=== PATIENT | female | born 1950 | race Caucasian/White ===

== ENCOUNTER → 2021-02-28 10:45 | Outpatient (CLI) | payer OTHER, SELFPAY ==
--- NOTE | ~2021-02-28 | DEXA_ITS ---
Bone Density Report Name: Jennifer Borden Age: 70 Sex: Female Ethnicity: White Date of : 1950 Indication: postmenopausal; screening for osteoporosis; hysterectomy; Referring Provider: Miranda De La Paz Study: Bone densitometry was performed. Exam Date: February 28, 2021 Accession number: [id number] Bone Density: Region BMD T-score Z-score Classification AP Spine (L1-L4) 1.027 -0.2 2.1 Normal Femoral Neck (Left) 0.754 -0.9 1.1 Normal Total Hip (Left) 0.890 -0.4 1.2 Normal Femoral Neck (Right) 0.786 -0.6 1.4 Normal Total Hip (Right) 0.886 -0.5 1.2 Normal Total Hip Mean 0.888 -0.5 1.2 Normal World Health Organization criteria for BMD impression classify patients as: Normal (T-score at or above -1.0), Osteopenia (T-score between -1.0 and -2.5), or Osteoporosis (T-score at or below -2.5). 10-year Fracture Risk: FRAX not reported because: All T-scores for Spine Total, Hip Total, Femoral Neck at or above -1.0 Previous Exams: Region Exam Age BMD T-score BMD Change BMD Change Date g/cm2 vs Baseline vs Previous AP Spine(L1-L4) 02/28/2021 70 1.027 -0.2 0.076* 0.076* 11/02/2017 66 0.951 -0.9 Total Hip(Left) 02/28/2021 70 0.890 -0.4 -0.023 -0.023 11/02/2017 66 0.913 -0.2 Total Hip(Right) 02/28/2021 70 0.886 -0.5 -0.002 -0.002 11/02/2017 66 0.889 -0.4 *Denotes significance at 95% confidence level, LSC for AP Spine = 0.022 g/cm2, LSC for Total Hip = 0.027 g/cm2 Clinical Information Provided by Patient: Has the following medical conditions: Hysterectomy Patient maximum height was 64 Menopause Age: 43 Drinks caffeinated beverages Onset of menses at age 11 Number of children 2 Impression: The patient has normal bone mass. No significant bone loss was observed. Discussion: BONE DENSITY IS ABOVE THE MINIMUM DESIRABLE LEVEL AT ALL SKELETAL SITES TESTED. This patient?s bone mineral density is above the minimum desirable level (T-score -1.0 or better) at all sites measured. The patient should follow a healthful lifestyle (good nutrition with adequate calcium and vitamin D, and appropriate weight-bearing exercise). Follow-Up: Consider repeating this study in 5 years or sooner if there is some new clinical indication. Reported by: [facility] on 02/28/2021 11:22:00 AM. Reviewed, dictated and finalized at location Keren FISH
--- NOTE | ~2021-02-28 | MM_ITS ---
EXAMINATION: MM screening nicole BI w bo HISTORY: Screening mammogram TECHNIQUE: Craniocaudal and mediolateral oblique 3-D tomosynthesis images were obtained and synthetic 2-D images were generated. CAD analysis was submitted and interpreted. COMPARISON: 11/02/2017 BREAST PARENCHYMAL COMPOSITION: The breasts are heterogeneously dense, which may obscure small masses . FINDINGS: There is no evidence of suspicious mass, calcification, or architectural distortion to sugg est malignancy in either breast. There has been no suspicious interval change. IMPRESSION: 1. No mammographic evidence of malignancy. 2. Recommend routine screening mammography in one year. BI-RADS Category 1: Negative Reviewed, dictated and finalized at location A.
== END ==
PROVIDERS: PCP Nurse Practitioner; Visit Provider Nurse Practitioner
DX: Z12.31 Encounter for screening mammogram for malignant neoplasm of breast (principal); Z78.0 Asymptomatic menopausal state
CPT/HCPCS: 77063; 77067; 77080

== ENCOUNTER 2022-06-07 08:30 | Outpatient (CLI) | payer OTHER, SELFPAY ==
[2022-06-07 18:58] LABS: Hemoglobin A1C 6.7 % (<5.7)
[2022-06-07 19:04] LABS: Alanine Aminotransferase 14 U/L (6-35); Albumin Level 4.2 g/dL (3.5-5.1); Alkaline Phosphatase 37 U/L (38-126); Anion Gap 5 mmol/L (8-16); Aspartate Amino Transferase 59 U/L (14-36); Bilirubin,Total 0.9 mg/dL (0.2-1.3); Blood Urea Nitrogen 19 mg/dL (7-17); Calcium 8.5 mg/dL (8.4-10.2); Carbon Dioxide 29 mmol/L (22-30); Chloride 107 mmol/L (98-107); Cholesterol 156 mg/dL (0-200); Estimated Glomerular Filt Rate > 60; Glucose 102 mg/dL (65-110); HDL Direct 51 mg/dL; Sodium 141 mmol/L (137-145); Triglycerides 41 mg/dL (<150)
[2022-06-07 19:16] LABS: LDL Cholesterol Direct 74 mg/dL
== END 2022-06-07 08:31 | disposition home or self-care (01) ==
PROVIDERS: PCP Family Medicine; Visit Provider Nurse Practitioner
DX: E11.9 Type 2 diabetes mellitus without complications (principal); E55.9 Vitamin D deficiency, unspecified; E78.5 Hyperlipidemia, unspecified; I10 Essential (primary) hypertension
CPT/HCPCS: 36415; 80053; 80061; 82306; 83036

== ENCOUNTER 2022-06-09 11:18 | Outpatient (NON) | payer OTHER, SELFPAY ==
[2022-06-09 19:33] LABS: Creatinine Urine 95.8 mg/dL
[2022-06-09 19:37] LABS: MALB Creatinine Ratio 52.6 mg/g (0-30); Microalbumin Urine Random 50.4 mg/L (0-16.7)
== END 2022-06-09 11:19 | disposition home or self-care (01) ==
LOC: ANHGOSHLAB 11:21
PROVIDERS: PCP Family Medicine; Visit Provider Nurse Practitioner
DX: E11.9 Type 2 diabetes mellitus without complications (principal)
CPT/HCPCS: 82043

== ENCOUNTER → 2022-09-20 15:47 | Outpatient (CLI) | payer OTHER, SELFPAY ==
--- NOTE | ~2022-09-20 | MM_ITS ---
EXAMINATION: MM screening nicole BI w bo HISTORY: Screening mammogram TECHNIQUE: Craniocaudal and mediolateral oblique 3-D tomosynthesis images were obtained and synthetic 2-D images were generated. CAD analysis was submitted and interpreted. COMPARISON: 02/28/2021, 11/02/2017 bilateral screening mammogram examinations BREAST PARENCHYMAL COMPOSITION: The breasts are heterogeneously dense, which may obscure small masses . FINDINGS: There is no evidence of suspicious mass, calcification, or architectural distortion to sugg est malignancy in either breast. There has been no suspicious interval change. IMPRESSION: 1. No mammographic evidence of malignancy. 2. Recommend routine screening mammography in one year. BI-RADS Category 1: Negative Reviewed, dictated and finalized at location A.
== END ==
PROVIDERS: PCP Family Medicine; Visit Provider Nurse Practitioner
DX: Z12.31 Encounter for screening mammogram for malignant neoplasm of breast (principal)
CPT/HCPCS: 77063; 77067

== ENCOUNTER 2024-03-25 08:49 | Outpatient (CLI) | payer OTHER, SELFPAY | END 2024-03-25 08:50 | disposition home or self-care (01) | LOC: ANHAUDIO 08:52 | PROVIDERS: PCP Family Medicine; Visit Provider Nurse Practitioner Family | DX: H91.90 Unspecified hearing loss, unspecified ear (principal) | CPT/HCPCS: 92557; 92567 ==

== ENCOUNTER 2024-08-18 13:26 | Outpatient (CLI) | payer OTHER, SELFPAY ==
--- NOTE | ~2024-08-18 | MM_ITS ---
EXAMINATION: MM screening nicole BI w bo HISTORY: Screening TECHNIQUE: Craniocaudal and mediolateral oblique 3-D tomosynthesis images were obtained and synthetic 2-D images were generated. CAD analysis was submitted and interpreted. COMPARISON: Comparison to multiple prior studies sequentially, with oldest reviewed study dated 11/02. BREAST PARENCHYMAL COMPOSITION: Dense: The breasts are heterogeneously dense, which may obscure small masses FINDINGS: There is no evidence of suspicious mass, calcification, or architectural distortion to sugg est malignancy in either breast. There has been no suspicious interval change. IMPRESSION: 1. No mammographic evidence of malignancy. 2. Recommend routine screening mammography in one year. BI-RADS Category 1: Negative Reviewed, dictated and finalized at location B. 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
== END 2024-08-18 13:27 | disposition home or self-care (01) ==
LOC: MICIMG 13:27
PROVIDERS: PCP Family Medicine; Visit Provider Nurse Practitioner Family
DX: Z12.31 Encounter for screening mammogram for malignant neoplasm of breast (principal)
CPT/HCPCS: 77063; 77067

== ENCOUNTER 2024-09-09 10:05 | Outpatient (CLI) | payer OTHER, SELFPAY ==
[2024-09-09 13:27] LABS: Basophils Percent Auto 0.6 % (0.2-1.2); Eosinophils Absolute Auto 0.2 K/mm3 (0-0.3); Eosinophils Percent Auto 2.2 % (0-4.4); Hematocrit 38.7 % (37.0-47.0); Immature Granulocyte Absolute 0.01 K/mm3 (0.00-0.031); Immature Granulocyte Percent A 0.1 % (0-0.5); Lymphocytes Percent Auto 32.2 % (18.3-44.2); Mean Corpuscular Hemoglobin 28.1 pg (26-34); Mean Corpuscular Volume 90.6 fl (80-100); Mean Platelet Volume 11.7 fl (7.4-10.4); Monocytes Absolute Auto 0.6 K/mm3 (0.1-0.6); Monocytes Percent Auto 8.5 % (2.6-8.5); Neutrophils Percent Auto 56.4 % (45.5-73.1); Platelet Count Result 213 k/mm3 (150-375); Red Blood Count 4.27 M/mm3 (4.2-5.4); Red Cell Distribution Width 12.1 % (11.5-14.5); White Blood Count 7.1 K/mm3 (4.5-10.0)
[2024-09-09 14:15] LABS: Alanine Aminotransferase 12 U/L (6-35); Albumin Level 4.4 g/dL (3.5-5.1); Alkaline Phosphatase 37 U/L (38-126); Anion Gap 8 mmol/L (4-12); Aspartate Amino Transferase 41 U/L (14-36); Bilirubin,Total 0.8 mg/dL (0.2-1.3); Blood Urea Nitrogen 29 mg/dL (7-17); Calcium 9.3 mg/dL (8.4-10.2); Carbon Dioxide 29 mmol/L (22-30); Chloride 105 mmol/L (98-107); Cholesterol 192 mg/dL (0-200); Estimated Glomerular Filt Rate > 60; Glucose 99 mg/dL (65-110); HDL Direct 77 mg/dL; Potassium 4.4 mmol/L (3.4-5.0); Sodium 142 mmol/L (137-145); Triglycerides 53 mg/dL (<150)
[2024-09-09 14:23] LABS: Vitamin D 25 Hydroxy 77.8 ng/mL
[2024-09-09 14:27] LABS: LDL Cholesterol Direct 82 mg/dL
[2024-09-09 15:33] LABS: Hemoglobin A1C 5.8 % (<5.7)
== END 2024-09-09 10:06 | disposition home or self-care (01) ==
LOC: ANHGOSHLAB 10:06
PROVIDERS: PCP Family Medicine; Visit Provider Nurse Practitioner Family
DX: E55.9 Vitamin D deficiency, unspecified (principal); I10 Essential (primary) hypertension; E11.9 Type 2 diabetes mellitus without complications; E78.5 Hyperlipidemia, unspecified
CPT/HCPCS: 36415; 80053; 80061; 82306; 83036; 84443; 85025

== ENCOUNTER 2024-09-12 11:56 | Outpatient (NON) | payer OTHER, SELFPAY ==
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
--- OUTSIDE RECORDS SUMMARY | 2024-09-12 12:40 | XMS_ITS | Patient Health Summary ---
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 same degree of neural foraminal stenosis at these levels. Multiple hypodense thyroid nodules, the largest in the right thyroid lobe measures approximately 1.4 x 1.5 cm, (series 5, image 164). A nonemergent ultrasound of the thyroid gland is recommended for further evaluation. Right apical scarring and minimal background emphysema. Thoracic spine: Mild S-shaped curvature of the thoracic spine. Minimal exaggeration of the thoracic kyphosis. The alignment is otherwise maintained Vertebral bodies are normal in height without evidence of acute fracture. There is mild degenerative disc disease. No central canal stenosis is seen. There is mild facet osteoarthritis at multiple levels. No significant neural foraminal stenosis is seen. There is subsegmental atelectasis in the dependent portions of the lung bases. Lumbar spine: The alignment is normal. No acute fractures. There is diffuse disc bulge at multiple levels. Mild central canal stenosis is seen at L4-L5. There is mild facet osteoarthritis at multiple levels, worse at L5-S1 on the right. No neural foraminal stenosis is seen. There are degenerative changes of the SI joints. There is atherosclerotic calcification of the abdominal aorta and its branch vessels. Procedure Note Susan Romero MD - 06/13/2021 CT HEAD WO CONTRAST, CT FACIAL BONES WO CONTRAST, CT LUMBAR SPINE WO CONTRAST, CT THORACIC SPINE WO CONTRAST, CT CERVICAL SPINE WO CONTRAST DATE: 06/12/2021 12:32 PM EXAMINATION: 1. Computed tomography (CT) of the head without contrast 2. CT of the maxillofacial bones, orbits, and paranasal sinuses without contrast 3. CT of the cervical spine without contrast 4. CT of the thoracic spine without contrast 5. CT of the lumbar spine without contrast HISTORY: Trauma TECHNIQUE: CT of the head, cervical spine, and maxillofacial bones, orbits, and paranasal sinuses was performed without contrast accordingto standard protocol. Reformatted axial, sagittal, and coronal images ofthe thoracic and lumbar spine were obtained by the technologist from a concurrently performed body CT and sent to the workstation for review. COMPARISON: No prior study is available for comparison at the time ofthis dictation. FINDINGS: Head: No acute intra- or extra-axial fluid collections are identified. The ventricles are of normal size, shape, and morphology. The basilarcisterns are patent. No mass effect or midline shift is seen. The fritz-whitematter differentiation is normal. There is vascular calcification of thecarotid siphons. No acute calvarial fracture is identified. Moderate frontal scalp hematoma/soft tissue swelling. Maxillofacial: Other than bilateral cataract extractions, the orbits appear normal.There is minimal paranasal sinus disease. The hard palate, mandible, and temporomandibular joints appear normal. Acute, minimally displaced left nasal bone fractures. The mastoid air cells are clear. Moderate frontal scalp hematoma/soft tissue swelling. Patient is edentulous except forone unerupted mandibular tooth on the right. Cervical spine: Subtle retrolisthesis of C5 on C6 with endplate degenerative changes and deformity posteriorly. Relative straightening of the upper cervical lordosis. The alignment is otherwise maintained. Vertebral bodies are normal in height without evidence of acute fracture. Other than middle atlantoaxial joint osteoarthritis, the craniocervical junction appears normal. Mild degenerative disc disease at C4-C5 with posteriorosteophyte complex. No significant central canal stenosis is seen. There arevarying degrees of mild facet osteoarthritis. There are varying degrees of mild uncovertebral joint osteoarthritis with the same degree of neural foraminal stenosis at these levels. Multiple hypodense thyroid nodules, the largest in the right thyroid lobe measures approximately 1.4 x 1.5cm, (series 5, image 164). A nonemergent ultrasound of the thyroid gland is recommended for further evaluation. Right apical scarring and minimal background emphysema. Thoracic spine: Mild S-shaped curvature of the thoracic spine. Minimal exaggeration ofthe thoracic kyphosis. The alignment is otherwise maintained Vertebralbodies are normal in height without evidence of acute fracture. There is mild degenerative disc disease. No central canal stenosis is seen. There is mild facet osteoarthritis at multiple levels. No significant neural foraminal stenosis is seen. There is subsegmental atelectasis in the dependent portions of the lung bases. Lumbar spine: The alignment is normal. No acute fractures. There is diffuse disc bulge at multiple levels. Mild central canal stenosis is seen at L4-L5. Thereis mild facet osteoarthritis at multiple levels, worse at L5-S1 on theright. No neural foraminal stenosis is seen. There are degenerative changes of the SI joints. There is atherosclerotic calcification of the abdominal aorta and its branch vessels. IMPRESSION: 1.No evidence of intracranial hemorrhage, mass effect, midline shift. 2.Acute, minimally displaced left nasal bone fractures. Moderate frontal scalp hematoma/soft tissue swelling. 3.No acute fractures in the cervical, thoracic, lumbar spine. Dictated by Jai Potter DO (president and ceo) This report was approved by Jai Potter on 06/13/2021 8:[address] SUSAN Smith have personally reviewed and interpreted this examination/study. This report was electronically signed by SUSAN ROMERO on06/13/2021 8:01 AM . Peterson West MD CT ORDERABLES * CT CERVICAL SPINE WO CONTRAST - C-Spine Trauma, Spine fracture (06/12/2021 12:10 PM SYRUP FILTERER) Anatomical Region Laterality Modality Spine Computed Tomogra phy 06/12/2021 12:3 0 PM SYR[employer] FILTER[employer] Impressions 06/13/2021 8:01 AM SYRUP FILTERER IMPRESSION: 1.No evidence of intracranial hemorrhage, mass effect, midline shift. 2.Acute, minimally displaced left nasal bone fractures. Moderate frontal scalp hematoma/soft tissue swelling. 3.No acute fractures in the cervical, thoracic, lumbar spine. Dictated by Jai Potter DO (president and ceo) This report was approved by Jai Potter on 06/13/2021 8:[address] SUSAN Smith have personally reviewed and interpreted this examination/study. This report was electronically signed by SUSAN ROMERO on 06/13/2021 8:01 AM . Narrative 06/13/2021 8:[address] HEAD WO CONTRAST, CT FACIAL BONES WO CONTRAST, CT LUMBAR SPINE WO CONTRAST, CT THORACIC SPINE WO CONTRAST, CT CERVICAL SPINE WO CONTRAST DATE: 06/12/2021 12:32 PM EXAMINATION: 1. Computed tomography (CT) of the head without contrast 2. CT of the maxillofacial bones, orbits, and paranasal sinuses without contrast 3. CT of the cervical spine without contrast 4. CT of the thoracic spine without contrast 5. CT of the lumbar spine without contrast HISTORY: Trauma TECHNIQUE: CT of the head, cervical spine, and maxillofacial bones, orbits, and paranasal sinuses was performed without contrast according to standard protocol. Reformatted axial, sagittal, and coronal images of the thoracic and lumbar spine were obtained by the technologist from a concurrently performed body CT and sent to the workstation for review. COMPARISON: No prior study is available for comparison at the time of this dictation. FINDINGS: Head: No acute intra- or extra-axial fluid collections are identified. The ventricles are of normal size, shape, and morphology. The basilar cisterns are patent. No mass effect or midline shift is seen. The fritz-white matter differentiation is normal. There is vascular calcification of the carotid siphons. No acute calvarial fracture is identified. Moderate frontal scalp hematoma/soft tissue swelling. Maxillofacial: Other than bilateral cataract extractions, the orbits appear normal. There is minimal paranasal sinus disease. The hard palate, mandible, and temporomandibular joints appear normal. Acute, minimally displaced left nasal bone fractures. The mastoid air cells are clear. Moderate frontal scalp hematoma/soft tissue swelling. Patient is edentulous except for one unerupted mandibular tooth on the right. Cervical spine: Subtle retrolisthesis of C5 on C6 with endplate degenerative changes and deformity posteriorly. Relative straightening of the upper cervical lordosis. The alignment is otherwise maintained. Vertebral bodies are normal in height without evidence of acute fracture. Other than middle atlantoaxial joint osteoarthritis, the craniocervical junction appears normal. Mild degenerative disc disease at C4-C5 with posterior osteophyte complex. No significant central canal stenosis is seen. There are varying degrees of mild facet osteoarthritis. There are varying degrees of mild uncovertebral joint osteoarthritis with the same degree of neural foraminal stenosis at these levels. Multiple hypodense thyroid nodules, the largest in the right thyroid lobe measures approximately 1.4 x 1.5 cm, (series 5, image 164). A nonemergent ultrasound of the thyroid gland is recommended for further evaluation. Right apical scarring and minimal background emphysema. Thoracic spine: Mild S-shaped curvature of the thoracic spine. Minimal exaggeration of the thoracic kyphosis. The alignment is otherwise maintained Vertebral bodies are normal in height without evidence of acute fracture. There is mild degenerative disc disease. No central canal stenosis is seen. There is mild facet osteoarthritis at multiple levels. No significant neural foraminal stenosis is seen. There is subsegmental atelectasis in the dependent portions of the lung bases. Lumbar spine: The alignment is normal. No acute fractures. There is diffuse disc bulge at multiple levels. Mild central canal stenosis is seen at L4-L5. There is mild facet osteoarthritis at multiple levels, worse at L5-S1 on the right. No neural foraminal stenosis is seen. There are degenerative changes of the SI joints. There is atherosclerotic calcification of the abdominal aorta and its branch vessels. Procedure Note Susan Romero MD - 06/13/2021 CT HEAD WO CONTRAST, CT FACIAL BONES WO CONTRAST, CT LUMBAR SPINE WO CONTRAST, CT THORACIC SPINE WO CONTRAST, CT CERVICAL SPINE WO CONTRAST DATE: 06/12/2021 12:32 PM EXAMINATION: 1. Computed tomography (CT) of the head without contrast 2. CT of the maxillofacial bones, orbits, and paranasal sinuses without contrast 3. CT of the cervical spine without contrast 4. CT of the thoracic spine without contrast 5. CT of the lumbar spine without contrast HISTORY: Trauma TECHNIQUE: CT of the head, cervical spine, and maxillofacial bones, orbits, and paranasal sinuses was performed without contrast accordingto standard protocol. Reformatted axial, sagittal, and coronal images ofthe thoracic and lumbar spine were obtained by the technologist from a concurrently performed body CT and sent to the workstation for review. COMPARISON: No prior study is available for comparison at the time ofthis dictation. FINDINGS: Head: No acute intra- or extra-axial fluid collections are identified. The ventricles are of normal size, shape, and morphology. The basilarcisterns are patent. No mass effect or midline shift is seen. The fritz-whitematter differentiation is normal. There is vascular calcification of thecarotid siphons. No acute calvarial fracture is identified. Moderate frontal scalp hematoma/soft tissue swelling. Maxillofacial: Other than bilateral cataract extractions, the orbits appear normal.There is minimal paranasal sinus disease. The hard palate, mandible, and temporomandibular joints appear normal. Acute, minimally displaced left nasal bone fractures. The mastoid air cells are clear. Moderate frontal scalp hematoma/soft tissue swelling. Patient is edentulous except forone unerupted mandibular tooth on the right. Cervical spine: Subtle retrolisthesis of C5 on C6 with endplate degenerative changes and deformity posteriorly. Relative straightening of the upper cervical lordosis. The alignment is otherwise maintained. Vertebral bodies are normal in height without evidence of acute fracture. Other than middle atlantoaxial joint osteoarthritis, the craniocervical junction appears normal. Mild degenerative disc disease at C4-C5 with posteriorosteophyte complex. No significant central canal stenosis is seen. There arevarying degrees of mild facet osteoarthritis. There are varying degrees of mild uncovertebral joint osteoarthritis with the same degree of neural foraminal stenosis at these levels. Multiple hypodense thyroid nodules, the largest in the right thyroid lobe measures approximately 1.4 x 1.5cm, (series 5, image 164). A nonemergent ultrasound of the thyroid gland is recommended for further evaluation. Right apical scarring and minimal background emphysema. Thoracic spine: Mild S-shaped curvature of the thoracic spine. Minimal exaggeration ofthe thoracic kyphosis. The alignment is otherwise maintained Vertebralbodies are normal in height without evidence of acute fracture. There is mild degenerative disc disease. No central canal stenosis is seen. There is mild facet osteoarthritis at multiple levels. No significant neural foraminal stenosis is seen. There is subsegmental atelectasis in the dependent portions of the lung bases. Lumbar spine: The alignment is normal. No acute fractures. There is diffuse disc bulge at multiple levels. Mild central canal stenosis is seen at L4-L5. Thereis mild facet osteoarthritis at multiple levels, worse at L5-S1 on theright. No neural foraminal stenosis is seen. There are degenerative changes of the SI joints. There is atherosclerotic calcification of the abdominal aorta and its branch vessels. IMPRESSION: 1.No evidence of intracranial hemorrhage, mass effect, midline shift. 2.Acute, minimally displaced left nasal bone fractures. Moderate frontal scalp hematoma/soft tissue swelling. 3.No acute fractures in the cervical, thoracic, lumbar spine. Dictated by Jai Potter DO (president and ceo) This report was approved by Jai Potter on 06/13/2021 8:01 AM . I, Dr. SUSAN ROMERO have personally reviewed and interpreted this examination/study. This report was electronically signed by SUSAN ROMERO on06/13/2021 8:01 AM . Peterson West MD CT ORDERABLES * CT FACIAL BONES WO CONTRAST - Facial trauma, fx suspected, blunt (06/12/2021 12:10 PM SYRUP FILTERER) Anatomical Region Laterality Modality Head Computed Tomogra phy 06/12/2021 12:3 0 PM SYRUP FILTERER Impressions 06/13/2021 8:01 AM SYRUP FILTERER IMPRESSION: 1.No evidence of intracranial hemorrhage, mass effect, midline shift. 2.Acute, minimally displaced left nasal bone fractures. Moderate frontal scalp hematoma/soft tissue swelling. 3.No acute fractures in the cervical, thoracic, lumbar spine. Dictated by Jai Potter DO (president and ceo) This report was approved by Jai Potter on 06/13/2021 8:01 AM . I, Dr. SUSAN ROMERO have personally reviewed and interpreted this examination/study. This report was electronically signed by SUSAN ROMERO on 06/13/2021 8:01 AM . Narrative 06/13/2021 8:[address] HEAD WO CONTRAST, CT FACIAL BONES WO CONTRAST, CT LUMBAR SPINE WO CONTRAST, CT THORACIC SPINE WO CONTRAST, CT CERVICAL SPINE WO CONTRAST DATE: 06/12/2021 12:32 PM EXAMINATION: 1. Computed tomography (CT) of the head without contrast 2. CT of the maxillofacial bones, orbits, and paranasal sinuses without contrast 3. CT of the cervical spine without contrast 4. CT of the thoracic spine without contrast 5. CT of the lumbar spine without contrast HISTORY: Trauma TECHNIQUE: CT of the head, cervical spine, and maxillofacial bones, orbits, and paranasal sinuses was performed without contrast according to standard protocol. Reformatted axial, sagittal, and coronal images of the thoracic and lumbar spine were obtained by the technologist from a concurrently performed body CT and sent to the workstation for review. COMPARISON: No prior study is available for comparison at the time of this dictation. FINDINGS: Head: No acute intra- or extra-axial fluid collections are identified. The ventricles are of normal size, shape, and morphology. The basilar cisterns are patent. No mass effect or midline shift is seen. The fritz-white matter differentiation is normal. There is vascular calcification of the carotid siphons. No acute calvarial fracture is identified. Moderate frontal scalp hematoma/soft tissue swelling. Maxillofacial: Other than bilateral cataract extractions, the orbits appear normal. There is minimal paranasal sinus disease. The hard palate, mandible, and temporomandibular joints appear normal. Acute, minimally displaced left nasal bone fractures. The mastoid air cells are clear. Moderate frontal scalp hematoma/soft tissue swelling. Patient is edentulous except for one unerupted mandibular tooth on the right. Cervical spine: Subtle retrolisthesis of C5 on C6 with endplate degenerative changes and deformity posteriorly. Relative straightening of the upper cervical lordosis. The alignment is otherwise maintained. Vertebral bodies are normal in height without evidence of acute fracture. Other than middle atlantoaxial joint osteoarthritis, the craniocervical junction appears normal. Mild degenerative disc disease at C4-C5 with posterior osteophyte complex. No significant central canal stenosis is seen. There are varying degrees of mild facet osteoarthritis. There are varying degrees of mild uncovertebral joint osteoarthritis with the same degree of neural foraminal stenosis at these levels. Multiple hypodense thyroid nodules, the largest in the right thyroid lobe measures approximately 1.4 x 1.5 cm, (series 5, image 164). A nonemergent ultrasound of the thyroid gland is recommended for further evaluation. Right apical scarring and minimal background emphysema. Thoracic spine: Mild S-shaped curvature of the thoracic spine. Minimal exaggeration of the thoracic kyphosis. The alignment is otherwise maintained Vertebral bodies are normal in height without evidence of acute fracture. There is mild degenerative disc disease. No central canal stenosis is seen. There is mild facet osteoarthritis at multiple levels. No significant neural foraminal stenosis is seen. There is subsegmental atelectasis in the dependent portions of the lung bases. Lumbar spine: The alignment is normal. No acute fractures. There is diffuse disc bulge at multiple levels. Mild central canal stenosis is seen at L4-L5. There is mild facet osteoarthritis at multiple levels, worse at L5-S1 on the right. No neural foraminal stenosis is seen. There are degenerative changes of the SI joints. There is atherosclerotic calcification of the abdominal aorta and its branch vessels. Procedure Note Susan Romero MD - 06/13/2021 CT HEAD WO CONTRAST, CT FACIAL BONES WO CONTRAST, CT LUMBAR SPINE WO CONTRAST, CT THORACIC SPINE WO CONTRAST, CT CERVICAL SPINE WO CONTRAST DATE: 06/12/2021 12:32 PM EXAMINATION: 1. Computed tomography (CT) of the head without contrast 2. CT of the maxillofacial bones, orbits, and paranasal sinuses without contrast 3. CT of the cervical spine without contrast 4. CT of the thoracic spine without contrast 5. CT of the lumbar spine without contrast HISTORY: Trauma TECHNIQUE: CT of the head, cervical spine, and maxillofacial bones, orbits, and paranasal sinuses was performed without contrast accordingto standard protocol. Reformatted axial, sagittal, and coronal images ofthe thoracic and lumbar spine were obtained by the technologist from a concurrently performed body CT and sent to the workstation for review. COMPARISON: No prior study is available for comparison at the time ofthis dictation. FINDINGS: Head: No acute intra- or extra-axial fluid collections are identified. The ventricles are of normal size, shape, and morphology. The basilarcisterns are patent. No mass effect or midline shift is seen. The fritz-whitematter differentiation is normal. There is vascular calcification of thecarotid siphons. No acute calvarial fracture is identified. Moderate frontal scalp hematoma/soft tissue swelling. Maxillofacial: Other than bilateral cataract extractions, the orbits appear normal.There is minimal paranasal sinus disease. The hard palate, mandible, and temporomandibular joints appear normal. Acute, minimally displaced left nasal bone fractures. The mastoid air cells are clear. Moderate frontal scalp hematoma/soft tissue swelling. Patient is edentulous except forone unerupted mandibular tooth on the right. Cervical spine: Subtle retrolisthesis of C5 on C6 with endplate degenerative changes and deformity posteriorly. Relative straightening of the upper cervical lordosis. The alignment is otherwise maintained. Vertebral bodies are normal in height without evidence of acute fracture. Other than middle atlantoaxial joint osteoarthritis, the craniocervical junction appears normal. Mild degenerative disc disease at C4-C5 with posteriorosteophyte complex. No significant central canal stenosis is seen. There arevarying degrees of mild facet osteoarthritis. There are varying degrees of mild uncovertebral joint osteoarthritis with the same degree of neural foraminal stenosis at these levels. Multiple hypodense thyroid nodules, the largest in the right thyroid lobe measures approximately 1.4 x 1.5cm, (series 5, image 164). A nonemergent ultrasound of the thyroid gland is recommended for further evaluation. Right apical scarring and minimal background emphysema. Thoracic spine: Mild S-shaped curvature of the thoracic spine. Minimal exaggeration ofthe thoracic kyphosis. The alignment is otherwise maintained Vertebralbodies are normal in height without evidence of acute fracture. There is mild degenerative disc disease. No central canal stenosis is seen. There is mild facet osteoarthritis at multiple levels. No significant neural foraminal stenosis is seen. There is subsegmental atelectasis in the dependent portions of the lung bases. Lumbar spine: The alignment is normal. No acute fractures. There is diffuse disc bulge at multiple levels. Mild central canal stenosis is seen at L4-L5. Thereis mild facet osteoarthritis at multiple levels, worse at L5-S1 on theright. No neural foraminal stenosis is seen. There are degenerative changes of the SI joints. There is atherosclerotic calcification of the abdominal aorta and its branch vessels. IMPRESSION: 1.No evidence of intracranial hemorrhage, mass effect, midline shift. 2.Acute, minimally displaced left nasal bone fractures. Moderate frontal scalp hematoma/soft tissue swelling. 3.No acute fractures in the cervical, thoracic, lumbar spine. Dictated by Jai Potter DO (president and ceo) This report was approved by Jai Potter on 06/13/2021 8:01 AM . I, Dr. SUSAN ROMERO have personally reviewed and interpreted this examination/study. This report was electronically signed by SUSAN ROMERO on06/13/2021 8:01 AM . Peterson West MD CT ORDERABLES * CT HEAD WO CONTRAST - Head Trauma, CSF leak, mental status changes (06/12/2021 12:10 PM SYRUP FILTERER) Anatomical Region Laterality Modality Head Computed Tomogra phy 06/12/2021 12:3 0 PM SYRUP FILTERER Impressions 06/13/2021 8:01 AM SYRUP FILTERER IMPRESSION: 1.No evidence of intracranial hemorrhage, mass effect, midline shift. 2.Acute, minimally displaced left nasal bone fractures. Moderate frontal scalp hematoma/soft tissue swelling. 3.No acute fractures in the cervical, thoracic, lumbar spine. Dictated by Jai Potter DO (president and ceo) This report was approved by Jai Potter on 06/13/2021 8:01 AM . I, Dr. SUSAN ROMERO have personally reviewed and interpreted this examination/study. This report was electronically signed by SUSAN ROMERO on 06/13/2021 8:01 AM . Narrative 06/13/2021 8:[address] HEAD WO CONTRAST, CT FACIAL BONES WO CONTRAST, CT LUMBAR SPINE WO CONTRAST, CT THORACIC SPINE WO CONTRAST, CT CERVICAL SPINE WO CONTRAST DATE: 06/12/2021 12:32 PM EXAMINATION: 1. Computed tomography (CT) of the head without contrast 2. CT of the maxillofacial bones, orbits, and paranasal sinuses without contrast 3. CT of the cervical spine without contrast 4. CT of the thoracic spine without contrast 5. CT of the lumbar spine without contrast HISTORY: Trauma TECHNIQUE: CT of the head, cervical spine, and maxillofacial bones, orbits, and paranasal sinuses was performed without contrast according to standard protocol. Reformatted axial, sagittal, and coronal images of the thoracic and lumbar spine were obtained by the technologist from a concurrently performed body CT and sent to the workstation for review. COMPARISON: No prior study is available for comparison at the time of this dictation. FINDINGS: Head: No acute intra- or extra-axial fluid collections are identified. The ventricles are of normal size, shape, and morphology. The basilar cisterns are patent. No mass effect or midline shift is seen. The fritz-white matter differentiation is normal. There is vascular calcification of the carotid siphons. No acute calvarial fracture is identified. Moderate frontal scalp hematoma/soft tissue swelling. Maxillofacial: Other than bilateral cataract extractions, the orbits appear normal. There is minimal paranasal sinus disease. The hard palate, mandible, and temporomandibular joints appear normal. Acute, minimally displaced left nasal bone fractures. The mastoid air cells are clear. Moderate frontal scalp hematoma/soft tissue swelling. Patient is edentulous except for one unerupted mandibular tooth on the right. Cervical spine: Subtle retrolisthesis of C5 on C6 with endplate degenerative changes and deformity posteriorly. Relative straightening of the upper cervical lordosis. The alignment is otherwise maintained. Vertebral bodies are normal in height without evidence of acute fracture. Other than middle atlantoaxial joint osteoarthritis, the craniocervical junction appears normal. Mild degenerative disc disease at C4-C5 with posterior osteophyte complex. No significant central canal stenosis is seen. There are varying degrees of mild facet osteoarthritis. There are varying degrees of mild uncovertebral joint osteoarthritis with the same degree of neural foraminal stenosis at these levels. Multiple hypodense thyroid nodules, the largest in the right thyroid lobe measures approximately 1.4 x 1.5 cm, (series 5, image 164). A nonemergent ultrasound of the thyroid gland is recommended for further evaluation. Right apical scarring and minimal background emphysema. Thoracic spine: Mild S-shaped curvature of the thoracic spine. Minimal exaggeration of the thoracic kyphosis. The alignment is otherwise maintained Vertebral bodies are normal in height without evidence of acute fracture. There is mild degenerative disc disease. No central canal stenosis is seen. There is mild facet osteoarthritis at multiple levels. No significant neural foraminal stenosis is seen. There is subsegmental atelectasis in the dependent portions of the lung bases. Lumbar spine: The alignment is normal. No acute fractures. There is diffuse disc bulge at multiple levels. Mild central canal stenosis is seen at L4-L5. There is mild facet osteoarthritis at multiple levels, worse at L5-S1 on the right. No neural foraminal stenosis is seen. There are degenerative changes of the SI joints. There is atherosclerotic calcification of the abdominal aorta and its branch vessels. Procedure Note Susan Romero MD - 06/13/2021 CT HEAD WO CONTRAST, CT FACIAL BONES WO CONTRAST, CT LUMBAR SPINE WO CONTRAST, CT THORACIC SPINE WO CONTRAST, CT CERVICAL SPINE WO CONTRAST DATE: 06/12/2021 12:32 PM EXAMINATION: 1. Computed tomography (CT) of the head without contrast 2. CT of the maxillofacial bones, orbits, and paranasal sinuses without contrast 3. CT of the cervical spine without contrast 4. CT of the thoracic spine without contrast 5. CT of the lumbar spine without contrast HISTORY: Trauma TECHNIQUE: CT of the head, cervical spine, and maxillofacial bones, orbits, and paranasal sinuses was performed without contrast accordingto standard protocol. Reformatted axial, sagittal, and coronal images ofthe thoracic and lumbar spine were obtained by the technologist from a concurrently performed body CT and sent to the workstation for review. COMPARISON: No prior study is available for comparison at the time ofthis dictation. FINDINGS: Head: No acute intra- or extra-axial fluid collections are identified. The ventricles are of normal size, shape, and morphology. The basilarcisterns are patent. No mass effect or midline shift is seen. The fritz-whitematter differentiation is normal. There is vascular calcification of thecarotid siphons. No acute calvarial fracture is identified. Moderate frontal scalp hematoma/soft tissue swelling. Maxillofacial: Other than bilateral cataract extractions, the orbits appear normal.There is minimal paranasal sinus disease. The hard palate, mandible, and temporomandibular joints appear normal. Acute, minimally displaced left nasal bone fractures. The mastoid air cells are clear. Moderate frontal scalp hematoma/soft tissue swelling. Patient is edentulous except forone unerupted mandibular tooth on the right. Cervical spine: Subtle retrolisthesis of C5 on C6 with endplate degenerative changes and deformity posteriorly. Relative straightening of the upper cervical lordosis. The alignment is otherwise maintained. Vertebral bodies are normal in height without evidence of acute fracture. Other than middle atlantoaxial joint osteoarthritis, the craniocervical junction appears normal. Mild degenerative disc disease at C4-C5 with posteriorosteophyte complex. No significant central canal stenosis is seen. There arevarying degrees of mild facet osteoarthritis. There are varying degrees of mild uncovertebral joint osteoarthritis with the same degree of neural foraminal stenosis at these levels. Multiple hypodense thyroid nodules, the largest in the right thyroid lobe measures approximately 1.4 x 1.5cm, (series 5, image 164). A nonemergent ultrasound of the thyroid gland is recommended for further evaluation. Right apical scarring and minimal background emphysema. Thoracic spine: Mild S-shaped curvature of the thoracic spine. Minimal exaggeration ofthe thoracic kyphosis. The alignment is otherwise maintained Vertebralbodies are normal in height without evidence of acute fracture. There is mild degenerative disc disease. No central canal stenosis is seen. There is mild facet osteoarthritis at multiple levels. No significant neural foraminal stenosis is seen. There is subsegmental atelectasis in the dependent portions of the lung bases. Lumbar spine: The alignment is normal. No acute fractures. There is diffuse disc bulge at multiple levels. Mild central canal stenosis is seen at L4-L5. Thereis mild facet osteoarthritis at multiple levels, worse at L5-S1 on theright. No neural foraminal stenosis is seen. There are degenerative changes of the SI joints. There is atherosclerotic calcification of the abdominal aorta and its branch vessels. IMPRESSION: 1.No evidence of intracranial hemorrhage, mass effect, midline shift. 2.Acute, minimally displaced left nasal bone fractures. Moderate frontal scalp hematoma/soft tissue swelling. 3.No acute fractures in the cervical, thoracic, lumbar spine. Dictated by Jai Potter DO (president and ceo) This report was approved by Jai Potter on 06/13/2021 8:[address] SUSAN Smith have personally reviewed and interpreted this examination/study. This report was electronically signed by SUSAN ROMERO on06/13/2021 8:01 AM . Peterson West MD CT ORDERABLES * XR PELVIS 1 OR 2VW (06/12/2021 11:55 AM [employer]YR[employer] FILTERER) Anatomical Region Laterality Modality Pelvis Radiographic Chacha ging 06/12/2021 1:04 PM [employer] FIL[employer] Impressions 06/12/2021 11:49 PM [employer] IMPRESSION: No acute fracture identified. Dictated by Jai Potter DO (chief radiology). This report was approved by Jai Potter on 06/12/2021 11:[address] SUSAN Smith have personally reviewed and interpreted this examination/study. This report was electronically signed by SUSAN ROMERO on 06/12/2021 11:49 PM . Narrative 06/12/2021 11:49 PM [employer] EXAMINATION: XR PELVIS 1 OR 2VW HISTORY: Trauma Fracture suspected COMPARISON: No prior study is available for comparison at the time of this dictation. FINDINGS: No acute fracture is identified. The femoral heads appear well-seated within their respective acetabula. There are degenerative changes of the hip joints. The pubic symphysis is intact. The sacroiliac joints are normal. Procedure Note Susan Romero MD - 06/12/2021 EXAMINATION: XR PELVIS 1 OR 2VW HISTORY: Trauma Fracture suspected COMPARISON: No prior study is available for comparison at the time ofthis dictation. FINDINGS: No acute fracture is identified. The femoral heads appear well-seated within their respective acetabula. There are degenerative changes of the hip joints. The pubic symphysis is intact. The sacroiliac joints are normal. IMPRESSION: No acute fracture identified. Dictated by Jai Potter DO (chief radiology). This report was approved by Jai Potter on 06/12/2021 11:[address] SUSAN Simth have personally reviewed and interpreted this examination/study. This report was electronically signed by SUSAN ROMERO on06/12/2021 11:49 PM . Peterson West MD DIAGNOSTIC IMAGING O RDERABLES * XR CHEST 1VW PORTABLE (06/12/2021 11:54 AM SYRUP FILTERER) Anatomical Region Laterality Modality Chest Radiographic Chacha ging 06/12/2021 1:05 PM S[employer] FILTERER Impressions 06/12/2021 11:50 PM [employer]UP FILTERER FINDINGS/IMPRESSION: There is no focal consolidation, pleural effusion, or pneumothorax. The cardiomediastinal silhouette is normal. There are atherosclerotic calcifications of the aortic arch. The visible bony thorax is intact. Dictated by Jai Potter DO (chief radiology). This report was approved by Jai Potter on 06/12/2021 11:50 PM . I, Dr. SUSAN ROMERO have personally reviewed and interpreted this examination/study. This report was electronically signed by SUSAN ROMERO on 06/12/2021 11:50 PM . Narrative 06/12/2021 11:50 PM [employer]YRUP FILTERER EXAMINATION: XR CHEST 1VW PORTABLE HISTORY: Trauma COMPARISON: No prior study is available for comparison at the time of this dictation. Procedure Note Susan Romero MD - 06/12/2021 EXAMINATION: XR CHEST 1VW PORTABLE HISTORY: Trauma COMPARISON: No prior study is available for comparison at the time ofthis dictation. FINDINGS/IMPRESSION: There is no focal consolidation, pleural effusion, or pneumothorax. The cardiomediastinal silhouette is normal. There are atherosclerotic calcifications of the aortic arch. The visible bony thorax is intact. Dictated by Jai Potter DO (chief radiology). This report was approved by Jai Potter on 06/12/2021 11:50 PM . I, Dr. SUSAN ROMERO have personally reviewed and interpreted this examination/study. This report was electronically signed by SUSAN ROMERO on06/12/2021 11:50 PM . Peterson West MD DIAGNOSTIC IMAGING O RDERABLES * PTT [facility] (06/12/2021 11:53 AM SYRUP FILTERER) APTT 29.9 23.0 - 38.4 Seconds 06/12/2021 12:40 PM [facility] Comment:Suggested therapeuti c range for full dose I.V. unfractionated heparin therapy for venous thromboembolism is 71 to 109 seconds. Blood BLOOD SPECIMEN / Unknown Venipuncture / Unknown 06/12/2021 11:53 AM SYRUP FILTERER 06/12/2021 11:59 AM SYRUP FILTERER Peterson West MD LAB - COAGULATION OR DERABLES Performing Organization Address City/[facility]/ZIP Co de Phone Number [address] [id number] [phone] * PT-INR [facility] (06/12/2021 11:53 AM SYRUP FILTERER) PT 12.8 12.1 - 14.8 Seconds 06/12/2021 12:51 PM [facility] INR 1.0 See Comment 06/12/2021 12:51 PM [facility] Comment:The suggested therap eutic range for standard coumadin (warfarin) therapy is an INR of 2.0-3.0. For high-risk patients (Mechanical Mitral Valve Prosthesis, etc.), the suggested prophylactic therapeutic range is an INR of 2.5-3.5. Blood BLOOD SPECIMEN / Unknown Venipuncture / Unknown 06/12/2021 11:53 AM SYRUP FILTERER 06/12/2021 11:59 AM SYRUP FILTERER Peterson West MD LAB - COAGULATION OR DERABLES [address] [place] [address] [phone] * CBC W AUTO DIFFERENTIAL (06/12/2021 11:53 AM SYRUP FILTERER) WBC 7.8 3.5 - 10.5 10 3/uL 06/12/2021 12:02 PM [facility] RBC 4.64 3.80 - 5.20 10 6/uL 06/12/2021 12:02 PM [facility] Hemoglobin 12.9 12.0 - 15.6 g/dL 06/12/2021 12:02 PM [facility] Hematocrit 39.8 35.0 - 45.0 % 06/12/2021 12:02 PM [facility] MCV 85.8 80.7 - 98.3 fL 06/12/2021 12:02 PM [facility] MCH 27.8 26.7 - 34.0 pg 06/12/2021 12:02 PM [facility] MCHC 32.4 30.8 - 35.9 g/dL 06/12/2021 12:02 PM [facility] Platelet Count 235 150 - 400 10 3/uL 06/12/2021 12:02 PM [facility] RDW-SD 36.7 36.0 - 50.0 fL 06/12/2021 12:02 PM [facility] RDW-CV 11.8 11.2 - 14.8 % 06/12/2021 12:02 PM [facility] MPV 11.1 9.4 - 12.9 fL 06/12/2021 12:02 PM [facility] nRBC Absolute 0.00 0 10 3/uL 06/12/2021 12:02 PM [facility] nRBC Auto 0.0 0 /100 WBC 06/12/2021 12:02 PM [facility] Neutrophils % 54.3 35.0 - 70.0 % 06/12/2021 12:02 PM [facility] Lymphocytes % 34.6 20.0 - 43.0 % 06/12/2021 12:02 PM [facility] Monocytes % 8.4 5.0 - 13.0 % 06/12/2021 12:02 PM SYRUP FILTERER [facility] Eosinophils % 1.3 0.0 - 6.0 % 06/12/2021 12:02 PM [facility] Basophil % 0.4 0.0 - 2.0 % 06/12/2021 12:02 PM [facility] Neutrophils Absolute 4.3 1.6 - 7.0 10 3/uL 06/12/2021 12:02 PM [facility] Lymphocyte Absolute 2.7 1.1 - 3.9 10 3/uL 06/12/2021 12:02 PM [facility] Monocytes Absolute 0.66 0.26 - 1.07 10 3/uL 06/12/2021 12:02 PM [facility] Eosinophils Absolute 0.10 0.00 - 0.47 10 3/uL 06/12/2021 12:02 PM [facility] Basophils Absolute 0.03 0.00 - 0.08 10 3/uL 06/12/2021 12:02 PM [facility] Immature Granulocytes % 1.0 0.0 - 1.0 % 06/12/2021 12:02 PM [facility] Immature Granulocytes Absolute 0.08 06/12/2021 12:02 PM [facility] Blood BLOOD SPECIMEN / Unknown Venipuncture / Unknown 06/12/2021 11:53 AM SYRUP FILTERER 06/12/2021 11:59 AM SYRUP FILTERER Peterson West MD LAB - HEMATOLOGY ORD ERABLES Performing Organization Address City/State/[facility] Co de Phone Number [address] [address] [phone] * (ABNORMAL) BASIC METABOLIC PANEL (CALCIUM TOTAL) (06/12/2021 11:53 AM SYRUP FILTERER) BUN 21 7 - 26 mg/dL 06/12/2021 12:23 PM [facility] Creatinine 0.83 0.56 - 0.96 mg/dL 06/12/2021 12:23 PM [facility] Sodium 145 136 - 145 mmol/L 06/12/2021 12:23 PM [facility] Potassium 3.8 3.5 - 4.5 mmol/L 06/12/2021 12:23 PM [facility] Chloride 106 98 - 107 mmol/L 06/12/2021 12:23 PM [facility] CO2 28 22 - 29 mmol/L 06/12/2021 12:23 PM [facility] Glucose 125(H) 70 - 115 mg/dL 06/12/2021 12:23 PM [facility] Calcium 9.9 8.4 - 10.2 mg/dL 06/12/2021 12:23 PM [facility] Anion Gap 15 8 - 18 06/12/2021 12:23 PM [facility] BUN/Creatinine Ratio 25(H) 7 - 23 06/12/2021 12:23 PM [facility] Osmolality Calculated 304(H) 270 - 300 mOsm/kg 06/12/2021 12:23 PM [facility] eGFR by CKD-EPI 70(L) >=90 mL/min/1.7 3 m2 06/12/2021 12:23 PM [facility] Blood BLOOD SPECIMEN / Unknown Venipuncture / Unknown 06/12/2021 11:53 AM SYRUP FILTERER 06/12/2021 11:59 AM [facility] Peterson West MD LAB - CHEMISTRY RADHA [facility] Organization Address City/State/ZIP Co de Phone Number [facility] [address] [place] [phone], [facility] [phone] * ALCOHOL ETHYL BLOOD (06/12/2021 11:53 AM [facility]) Ethanol (mg/dL) <10 <10 mg/dL 12:23 PM [facility] Ethanol Calculated (g/dL) <0.010 <0.010 g/dL 06/12/2021 12:23 PM [facility] Blood BLOOD SPECIMEN / Unknown Venipuncture / Unknown 06/12/2021 11:53 AM SYRUP FILTERER 06/12/2021 11:59 AM [facility] - 06/12/2021 12:23 PM SYRUP FILTERER Ethanol Interp <10: None Detected. Depression of [employer]: >100 mg/dl Potentially Critical: >250 mg/dl Potentially Fatal >400 mg/dl Ethanol in the patient's blood will contribute to the osmolar gap. Ethanol's contribution to the osmolar gap can be estimated by dividing the concentration of ethanol in mg/dL by 4.6. This test is for clinical use only and does not equal a SALLY for legal purposes. Peterson West MD LAB - CHEMISTRY RADHA AQUINO [facility] [address] [place] [address], [facility] [phone] * SARS-COV-2 (COVID-19) IN HOUSE (07/23/2020 10:48 AM SYRUP FILTERER) COVID-19 PCR Not detected Not detected 07/23/2020 5:39 PM SYRUP FILTERER [facility] Microbiology SPECIMEN FROM NASOPHARYNGEAL STRUCTURE / Unknown Collection / Unknown 07/23/2020 10:48 AM SYRUP FILTERER 07/23/2020 11:22 AM SYRUP FILTERER Narrative [facility] - 07/23/2020 5:39 PM SYRUP FILTERER This nucleic acid amplification assay performance was validated by [facility]. This test has been authorized by the Food and Drug administration (FDA)under an Emergency Use Authorization (EUA). This test has been validated in accordance with the FDA's guidance document Policy for Diagnostic Testing in Laboratories Certified to perform High Complexity Testing under CLIA prior to Emergency Use Authorization for Coronavirus Disease-2019 during the Public Health Emergency issued on September 06, 2019. FDA independent review of this validation is pending. This test is only authorized for the duration of time the declaration that circumstances exist justifying the authorization of emergency use of in vitro diagnostic tests for detection of SARS-CoV-2 virus and/or diagnosis of COVID-19 infection under section 564(b)(1) of the Act, 21 U.S.C 360bbb-3 (b)(1), unless the authorization is terminated or revoked sooner. Fact Sheets for this EUA assay are available upon request. Italo Henson MD LAB - MICROBIOLOGY O RDERARAJESH Performing Organization Address City/[facility]/ZIP Co de Phone Number [facility] [address] [place], [place] [address], [facility] [phone] * EYE EXAM (06/09/2020 8:18 AM SYRUP FILTERER) Anatomical Region Laterality Modality Other Narrative 06/09/2020 8:18 AM SYRUP FILTERER Ordered by an unspecified provider. Scanned Document SCANNING ONLY * EYE EXAM (06/09/2020 8:11 AM SYRUP FILTERER) Anatomical Region Laterality Modality Other Narrative 06/09/2020 8:11 AM SYRUP FILTERER Ordered by an unspecified provider. Scanned Document SCANNING ONLY
--- OUTSIDE RECORDS SUMMARY | 2024-09-12 12:40 | XMS_ITS | Referral Summary ---
Author Organization [facility] Address [facility] [facility] [place] [address] Care Team Providers Care Manufacturer Representative Name Role Phone Unavailable Primary Care Provider Unavailabl e Source Comments [facility],non-owned Affiliates and Associated Physician Practices is amultiple site organization consisting of ambulatory clinics and hospital sitesin [place], [place], [place] and [place]. This disclosure is being madepursuant to the Care Everywhere program and may not contain all information available regarding this patient. Last updated 18.[facility] [employer] Allergies Active Allergy Reactions Criticality Noted Date [...] Comments Blood Pressure 141/75 07/07/2021 7:00 AM [employer] Pulse 63 07/07/2021 7:00 AM [employer] Temperature 36.7 C (98.1 F) 07/07/2021 5:49 AM [employer] Respiratory Rate 12 07/07/2021 7:00 AM [employer] Oxygen Saturation 99% 07/07/2021 7:00 AM [employer] Inhaled Oxygen Concentration 21% 06/13/2021 4 :14 AM [employer] Weight 61.8 kg (136 lb 3.2 oz) 07/07/2021 5:46 A M [employer] Height 160 cm (5' 3 ) 07/07/2021 5:46 AM [employer] Body Mass Index 24.13 07/07/2021 5:46 AM [employer] Plan of Treatment Not on file Advance Directives * Full Code (Latest Code Status on File) Date Activated Date Inactivated Comments 06/12/2021 1:06 PM 06/13/2021 3:44 PM
[2024-09-12 15:20] LABS: Creatinine Urine 71.4 mg/dL
[2024-09-12 15:23] LABS: MALB Creatinine Ratio 12.5 mg/g (0-30); Microalbumin Urine Random 8.9 mg/L (0-16.7)
== END 2024-09-12 11:57 | disposition home or self-care (01) ==
LOC: ANHGOSHLAB 11:59
PROVIDERS: PCP Family Medicine; Visit Provider Nurse Practitioner Family
DX: E78.5 Hyperlipidemia, unspecified (principal); E11.9 Type 2 diabetes mellitus without complications
CPT/HCPCS: 82043

== ENCOUNTER 2024-12-04 08:01 | Outpatient (CLI) | payer OTHER, SELFPAY ==
--- NOTE | ~2024-12-04 | DEXA_ITS ---
Bone Density Report Name: LANDRY FUNEZ Age: 74 Sex: Female Ethnicity: White Date of : 1950 Indication: postmenopausal; screening for osteoporosis; height loss; hysterectomy; Referring Provider: VICTORIANO WISEMAN Study: Bone densitometry was performed. Exam Date: December 04, 2024 Accession number: [id number] Bone Density: Region BMD T-score Z-score Classification AP Spine(L1-L4) 0.967 -0.7 1.7 Normal Femoral Neck (Left) 0.695 -1.4 0.7 Osteopenia Total Hip (Left) 0.839 -0.8 1.0 Normal Femoral Neck (Right) 0.727 -1.1 1.0 Osteopenia Total Hip (Right) 0.829 -0.9 0.9 Normal Total Hip Mean 0.834 -0.9 1.0 Normal World Health Organization criteria for BMD impression classify patients as: Normal (T-score at or above -1.0), Osteopenia (T-score between -1.0 and -2.5), or Osteoporosis (T-score at or below -2.5). 10-year Fracture Risk(1): Major Osteoporotic Fracture 11% Hip Fracture 2.2% Reported Risk Factors: [place] (), Neck BMD=0.695, BMI=22.1 (1) FRAX(R) Version 3.08. Fracture probability calculated for an untreated patient. Fracture probability may be lower if the patient has received treatment. Clinical Information Provided by Patient: Has used the following medications: Vitamin D Has the following medical conditions: Hysterectomy Patient maximum height was 64 Menopause Age: 39 Drinks caffeinated beverages Onset of menses at age 16 Number of children 2 Impression: The patient has low bone mass, based on the Left Femoral Neck T-score. The patient has an estimated ten-year risk of hip fracture of 2.2% and an estimated ten-year risk of major fracture of 11%, based on the WHO FRAX algorithm. Discussion: BONE DENSITY IS LOW AT ONE OR MORE SKELETAL SITES. This patient's lowest T-score is low at one or more skeletal sites. It meets the World Health Organization's (WHO) criteria for ?low bone mass? (T-score between -1.0 and -2.5). The patient's 10-year risk of fracture as calculated by FRAX is less than the threshold where pharmacological therapy is recommended by the National Osteoporosis Foundation (NOF). However, all treatment decisions require clinical judgment and consideration of individual patient factors, including patient preferences, comorbidities, previous drug use, risk factors not captured in the FRAX model (e.g., frailty, falls, vitamin D deficiency, increased bone turnover, interval significant decline in bone density) and possible under or overestimation of fracture risk by FRAX. The patient should follow a healthful lifestyle (good nutrition with adequate calcium and vitamin D, and appropriate weight-bearing exercise). Follow-Up: Consider repeating this study in 2 to 3 years to reassess this patient's status, or sooner if there is some new clinical indication. Reported by: TRACIE on 12/04/2024 8:42:00 AM. Reviewed, dictated and finalized at location A.
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
== END 2024-12-04 08:02 | disposition home or self-care (01) ==
LOC: ANHIMG 08:01
PROVIDERS: PCP Family Medicine; Visit Provider Nurse Practitioner Family
DX: M85.852 Other specified disorders of bone density and structure, left thigh (principal); M85.851 Other specified disorders of bone density and structure, right thigh; Z78.0 Asymptomatic menopausal state
CPT/HCPCS: 77080

== ENCOUNTER 2025-03-23 10:28 | Outpatient (CLI) | payer OTHER, SELFPAY ==
--- OUTSIDE RECORDS SUMMARY | 2025-03-23 11:59 | XMS_ITS | Clinical Summary ---
Author Organization [facility] Address [facility] [facility] [place] [address] Care Team Providers Care Mechanical Operator Name Role Phone Unavailable Primary Care Provider Unavailabl e Source Comments [facility],non-owned Affiliates and Associated Physician Practices is amultiple site organization consisting of ambulatory clinics and hospital sitesin [place], [place], [place] and [place]. This disclosure is being madepursuant to the Care Everywhere program and may not contain all information available regarding this patient. 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 Gender Identity Not on file Sexual Orientation Not on file Last Filed Vital Signs Vital Sign Reading Time Taken Comments Blood Pressure 141/75 07/07/2021 7:00 AM MAPPING SUPERVISOR Pulse 63 07/07/2021 7:00 AM MAPPING SUPERVISOR Temperature 36.7 C (98.1 F) 07/07/2021 5:49 AM MAPPING SUPERVISOR Respiratory Rate 12 07/07/2021 7:00 AM MAPPING SUPERVISOR Oxygen Saturation 99% 07/07/2021 7:00 AM MAPPING SUPERVISOR Inhaled Oxygen Concentration 21% 06/13/2021 4 :14 AM MAPPING SUPERVISOR Weight 61.8 kg (136 lb 3.2 oz) 07/07/2021 5:46 A M MAPPING SUPERVISOR Height 160 cm (5' 3) 07/07/2021 5:46 AM MAPPING SUPERVISOR Body Mass Index 24.13 07/07/2021 5:46 AM MAPPING SUPERVISOR Plan of Treatment Health Maintenance Due Date Last Done Comments BONE DENSITY TESTING 1950 HEPATITIS C SCREENING 11/29/1966 DTAP/TDAP/TD VACCINES (1 - Tdap) 12/04/1967 PNEUMOCOCCAL VACCINE 50+ (1 of 1 - PCV) 1998 ZOSTER VACCINE (1 of 2) 1998 Respiratory Syncytial Virus (RSV) Vaccine Pt: or over 60 yrs (1 - 1-dose 75+ series) 12/04/2023 DEPRESSION SCREENING 07/09/2024 COVID-19 VACCINE (2 - 2024-2 6 season) 2025 09/11/2020 INFLUENZA VACCINE (#1) 2025 HEPATITIS B VACCINE Aged Out No [...] patient's age to complete this topic Insurance [employer] MEDICARE [facility] Care Address: [address] [phone] * Guarantor: BRYON FUNEZ Account Type Relation to Patient Date of Phone Billing Address Personal/Family [address] [place] [address] [employer] MEDICARE TPL THIRD CONSTITUTION PARTY LIABILITY Republican Liability [facility] MEDICARE Advance Directives * Full Code (Latest Code Status on File) Date Activated Date Inactivated Comments 06/12/2021 1:06 PM 06/13/2021 3:44 PM
[2025-03-23 18:49] LABS: Alanine Aminotransferase 12 U/L (6-35); Albumin Level 4.2 g/dL (3.5-5.1); Alkaline Phosphatase 44 U/L (38-126); Anion Gap 7 mmol/L (4-12); Aspartate Amino Transferase 39 U/L (14-36); Bilirubin,Total 0.5 mg/dL (0.2-1.3); Blood Urea Nitrogen 21 mg/dL (7-17); Calcium 9.3 mg/dL (8.4-10.2); Carbon Dioxide 31 mmol/L (22-30); Chloride 103 mmol/L (98-107); Cholesterol 163 mg/dL (0-200); Estimated Glomerular Filt Rate > 60; Glucose 100 mg/dL (65-110); HDL Direct 71 mg/dL; Potassium 4.1 mmol/L (3.4-5.0); Sodium 141 mmol/L (137-145); Total Protein 7.0 g/dL (6.3-8.2); Triglycerides 58 mg/dL (<150)
[2025-03-23 18:53] LABS: Hematocrit 37.5 % (37.0-47.0); Hemoglobin 11.5 g/dL (12.0-15.0); Immature Granulocyte Percent A 0.3 % (0-0.5); Lymphocytes Absolute Auto 1.94 K/mm3 (0.9-3.2); Mean Corpuscular HGB Conc 30.7 g/dl (32-36); Mean Corpuscular Hemoglobin 28.1 pg (26-34); Mean Corpuscular Volume 91.7 fl (80-100); Nucleated Red Blood Cells Absolute Auto 0.000 K/mm3 (0.0-0.012); Nucleated Red Blood Cells Perc 0.0 % (0.0-0.2); Platelet Count Result 199 k/mm3 (150-375); Red Blood Count 4.09 M/mm3 (4.2-5.4); White Blood Count 6.2 K/mm3 (4.5-10.0)
[2025-03-23 19:43] LABS: Hemoglobin A1C 6.4 % (<5.7)
== END 2025-03-23 10:29 | disposition home or self-care (01) ==
LOC: ANHGOSHLAB 10:29
PROVIDERS: PCP Nurse Practitioner Family; Visit Provider Nurse Practitioner Family
DX: E78.5 Hyperlipidemia, unspecified (principal); I10 Essential (primary) hypertension; E11.9 Type 2 diabetes mellitus without complications
CPT/HCPCS: 36415; 80053; 80061; 83036; 85025